=== PATIENT | female | born 1940 | race Caucasian/White ===

== ENCOUNTER → 2017-04-13 | Outpatient (CLI) | payer OTHER ==
[~2017-04-13] MED LIST: LEVO25TA2 PO; METO25TA9 PO
--- NOTE | 2017-04-13 15:57 | DIREP ---
PROCEDURE:Digital Screening Mammogram TECHNIQUE:MLO and CC digital images of each breast are provided. Computer Assisted Detection (CAD) was utilized. COMPARISON:[facility], , MAMMO BILATERAL SCREENING WITH CAD, 04/04/2016, 02:28 PM. INDICATIONS:SCREENING BREAST COMPOSITION:There are scattered areas of fibroglandular density. FINDINGS:There are no grouped microcalcifications, masses, or architectural distortions to suggest malignancy. There is no significant change as compared with the previous examination(s). IMPRESSION:No mammographic evidence of malignancy. RECOMMENDATIONS:Routine Screening Mammography per [employer] guidelines. OVERALL FINAL ASSESSMENT:BI-RADS 2 - Benign Mammogram Note: This facility participates in a mammography screening patient reminder system. Dictated by: Richard Payne M.D. on 04/13/2017 at 03:54 PM
== END | disposition home or self-care (01) ==
LOC: RAD 14:15
PROVIDERS: ATTEND Nurse Practitioner Family
DX: Z12.31 Encounter for screening mammogram for malignant neoplasm of breast (principal)
CPT/HCPCS: G0202; 77067

== ENCOUNTER → 2017-05-12 | Outpatient (CLI) | payer OTHER ==
--- NOTE | 2017-05-12 17:35 | DIREP ---
COMPARISON:None. INDICATIONS:R42 DIZZINESS AND VERTIGO TECHNIQUE:A variety of imaging planes and parameters were utilized for visualization of suspected pathology. Images were performed without and with gadolinium contrast. FINDINGS: VENTRICLES:Mild to moderate ventriculomegaly with mild atrophy. There are minimal to mild periventricular white matter changes identified which may be secondary to small vessel disease and old aging. No lacunar infarcts are seen in the basal ganglia or in the thalamus. Pineal gland, Meckel's cave and cavernous sinuses are unremarkable. No evidence for demyelinating disorder is seen. CEREBRUM:Midline structures, shows normal-appearing corpus callosum. Sella, chiasm, cervicomedullary craniovertebral junctions are normal. No tonsillar ectopia is seen. Clivus and the odontoid are satisfactory. The arteries are patent at the level of [place] of [place]. No acute territorial infarct, bleed or mass lesion is seen. No acute or chronic epidural, subdural or subarachnoid hemorrhage is seen. No edema, midline shift or increased intracranial pressure is seen. CEREBELLUM:No posterior fossa infarcts or mass lesions are seen. IAC's, cerebello-pontine angle, brachium pontis and cerebellum are normal. The left vertebral artery is larger than the right. BRAINSTEM:No focal white matter changes are identified in the medulla, eli, brainstem and peduncles. The left vertebral artery is slightly ectatic and may impinge upon the [place] of the medulla on the left side. BASAL CISTERNS:Normal. HEMORRHAGE:No MASS LESION:No ACUTE INFARCT:No SKULL:There is mild hyperostosis of the skull. Minimal fluid in the right mastoid. No air-fluid levels are seen in the paranasal sinuses. The orbits are unremarkable. OTHER:No abnormal enhancement is identified in the vessels, dura, leptomeninges, or in the brain parenchyma. No subependymal enhancement is seen. CONCLUSION: Mild atrophy with minimal periventricular white matter change. Patent intracranial vessels. No acute infarct, bleed or mass lesion is seen. No posterior fossa infarcts or mass lesions are seen. No abnormal enhancement in the brain. Dictated by: Colt Lawrence MD on 05/12/2017 at 05:30 PM
== END | disposition home or self-care (01) ==
LOC: MRI 15:23
PROVIDERS: ATTEND Nurse Practitioner Family
DX: R42 Dizziness and giddiness (principal)
CPT/HCPCS: 70553; A9579

== ENCOUNTER → 2018-03-15 | Outpatient (CLI) | payer OTHER ==
[~2018-03-15] MED LIST changes: +METO-236 PO; -METO25TA9 PO
--- NOTE | 2018-03-15 16:40 | DIREP ---
PROCEDURE:Digital Screening Mammogram TECHNIQUE:MLO and CC digital images of each breast are provided. Computer Assisted Detection (CAD) was utilized. COMPARISON:[facility], MAMMO BILATERAL SCREENING, 04/13/2017, 02:57 PM. [facility], MAMMO BILATERAL SCREENING WITH CAD, 04/04/2016, 02:28 PM. INDICATIONS:SCREENING BREAST COMPOSITION:There are scattered areas of fibroglandular density. FINDINGS:There are no grouped microcalcifications, masses, or architectural distortions to suggest malignancy. There is no significant change as compared with the previous examination(s). IMPRESSION:No mammographic evidence of malignancy. RECOMMENDATIONS:Routine Screening Mammography per [employer] guidelines. OVERALL FINAL ASSESSMENT:BI-RADS 1 - Negative Mammogram Note: This facility participates in a mammography screening patient reminder system. Dictated by: Benja Tate MD on 03/15/2018 at 04:34 PM
== END | disposition home or self-care (01) ==
LOC: RAD 13:05
PROVIDERS: ATTEND Nurse Practitioner Family
DX: Z12.31 Encounter for screening mammogram for malignant neoplasm of breast (principal)
CPT/HCPCS: 77067

== ENCOUNTER 2018-11-28 06:15 | Day surgery (SDC) | payer OTHER ==
[2018-11-26 14:41] VITALS: BP 142/65
[2018-11-26 15:01] LABS: BASOPHIL # 0.1 10^3/uL (0.0-0.1); EOSINOPHIL # 0.2 10^3/uL (0.0-0.2); EOSINOPHIL % 3.9 % (0.0-5.0); HEMOGLOBIN 12.8 g/dL (12.0-15.0); LYMPHOCYTES # 1.6 10^3/uL (1.0-4.8); LYMPHOCYTES % 25.4 % (24.0-44.0); MEAN CELL HGB 30.9 pg (26-34); MEAN CELL HGB CONCENTRATION 32.4 g/dL (33-37); MEAN CORP VOLUME 95.4 fL (78-100); MEAN PLATELET VOLUME 10.3 fL (7.8-11.0); MONOCYTES # 0.8 10^3/uL (0.3-0.8); MONOCYTES % 13.1 % (5.0-12.0); NEUTROPHIL # 3.5 10^3/uL (1.8-7.7); NEUTROPHILS % 56.6 % (41.0-85.0); PLATELET COUNT 380 10^3/uL (150-400); RED CELL DISTRIBUTION WIDTH 12.9 % (11.5-14.5); WHITE BLOOD CELL 6.1 10^3/uL (4.5-11.0)
[2018-11-26 15:42] LABS: CALCIUM 9.7 mg/dL (8.4-10.5); CARBON DIOXIDE 25.9 mmol/L (20.0-32)
[2018-11-28] VITALS (8 sets, daily range): BP systolic 80–148; BP diastolic 44–79
[~2018-11-28] VITALS: Ht 154.9 cm; Wt 59.0 kg
[~2018-11-28 06:15] MED LIST changes: +CALC-76 PO; +LACTATED RINGERS 1,000 ML ONE; +MECL25TA3 PO; +MOVIPREP POWDER PACKET PO STA; +OMEP20CA12 PO; +PRAV40TA2 PO
[2018-11-28] MEDS: LACTATED RINGERS 1,000 ML IV SCH ×2 (06:29→08:07)
[2018-11-28] MEDS ORDERED: WATER ONE (06:47)
[2018-11-28] MEDS ORDERED: VERSED ONE (06:52)
[2018-11-28] MEDS ORDERED: SUBLIMAZE ONE (06:52)
[2018-11-28] MEDS ORDERED: DIPRIVAN IV ONE (06:52)
[2018-11-28] MEDS ORDERED: NS 100ML 100 ML IV ONE (06:53)
[2018-11-28] MEDS ORDERED: LIDOCAINE 2% VIAL ONE (06:53)
[2018-11-28] MEDS ORDERED: LACTATED RINGERS 1,000 ML ONE (08:04)
--- NOTE | 2018-11-28 12:29 | OPH ---
DATE OF SURGERY: PREOPERATIVE DIAGNOSIS: History of reflux disease and need for screening. POSTOPERATIVE DIAGNOSES: 1. Gastritis. 2. Small hiatal hernia. 3. Diverticular disease in the sigmoid colon. 4. Fixed colon. SURGEON: Rolly Orozco DO [employer] AGENT: OR staff. ANESTHESIA: Total intravenous anesthesia by Chel Calles CRNA. PROCEDURES PERFORMED: 1. Esophagogastroduodenoscopy with biopsy. 2. Flex sig to 24 cm with incomplete visualization of the colon. SPECIMENS: Gastric mucosa to path. ESTIMATED BLOOD LOSS: 3 mL. COUNTS: At the completion of the case, counts were correct per OR staff. DESCRIPTION OF PROCEDURE: The patient is a very pleasant 78-year-old female, who is known from previous evaluation. Prior to procedure, informed consent was obtained. At the time of procedure, she was taken to the operative suite and placed in supine position. After time-out was completed, he was placed in left lateral recumbent position. With excellent sedation, esophagogastroduodenoscope was advanced transorally with pneumoinsufflation distally into the second portion of duodenum. Once the duodenum was adequate visualized, camera was slowly withdrawn to facilitate visualization of the duodenal bulb and the pylorus. Pylorus and distal stomach showed gastritis and biopsies were obtained. The retroflexed maneuver was performed initially. The cardia was visualized, shows a hiatal hernia. The fundus was visualized subsequently; however, visualization was limited due to ability to scope, to pneumo-insufflate. After adequate visualization of the fundus, camera was reduced, the body of the stomach was inspected. Stomach was decompressed. Scope was slowly withdrawn. Distal, mid and proximal esophagus within normal limits. Vocal cords are not visualized. Camera was removed. Procedure was discontinued. The patient remained in the OR. Timeout was previously completed. With adequate sedation, rectal exam was performed. There were no masses. Next, the colonoscope was advanced transanally with pneumoinsufflation proximally through the rectum to the sigmoid colon where diverticular disease is identified; however, multiple attempts were made to advance proximally from what appears to be a fixed curvature that is not allow for passage of the scope. For concerns of possible perforation, procedure was discontinued. Camera was slowly withdrawn to the minimal portion of the distal sigmoid colon, which was seen in the rectum. There is no overt pathology identified. At the level of 5 cm, camera was retroflexed and reinserted. Anal verge was visualized and within normal limits. Camera was reduced. Colon was decompressed. Colonoscope was removed. The patient tolerated this procedure well. There were no acute complications noted. Rolly Orozco DO DR: HERNANDEZ/brijesh JOB# [id number] CC: Tonya Chanel NP
== END 2018-11-28 09:35 | disposition home or self-care (01) ==
LOC: SDC 06:15
PROVIDERS: ATTEND Surgery
DX: Z12.11 Encounter for screening for malignant neoplasm of colon (principal); K57.30 Diverticulosis of large intestine without perforation or abscess without bleeding; K29.50 Unspecified chronic gastritis without bleeding; K21.9 Gastro-esophageal reflux disease without esophagitis; K44.9 Diaphragmatic hernia without obstruction or gangrene; K63.89 Other specified diseases of intestine; M19.90 Unspecified osteoarthritis, unspecified site; I10 Essential (primary) hypertension; E78.5 Hyperlipidemia, unspecified; E03.9 Hypothyroidism, unspecified; Z98.890 Other specified postprocedural states; Z79.899 Other long term (current) drug therapy; Z98.51 Tubal ligation status; Z83.3 Family history of diabetes mellitus; Z82.49 Family history of ischemic heart disease and other diseases of the circulatory system
CPT/HCPCS: 36415; 43239; 80053; 85025; 85610; 85730; 88305; G0121; J2001; J2250; J3010; J3490; J7050; J7120 ×2

== ENCOUNTER → 2018-12-19 | Outpatient (CLI) | payer OTHER ==
[~2018-12-19] MED LIST changes: -LACTATED RINGERS 1,000 ML ONE; -MOVIPREP POWDER PACKET PO STA
== END | disposition home or self-care (01) ==
LOC: NPLAB 14:11
PROVIDERS: ATTEND Nurse Practitioner Family
DX: R42 Dizziness and giddiness (principal); R35.0 Frequency of micturition; I10 Essential (primary) hypertension; R53.83 Other fatigue; R26.89 Other abnormalities of gait and mobility
CPT/HCPCS: 87086

== ENCOUNTER → 2019-03-19 | Outpatient (CLI) | payer OTHER ==
--- NOTE | 2019-03-19 15:13 | DIREP ---
PROCEDURE:Digital Screening Mammogram TECHNIQUE:MLO and CC digital images of each breast are provided. Computer Assisted Detection (CAD) was utilized. COMPARISON:[facility], MAMMO BILATERAL SCREENING, 04/13/2017, 02:57 PM. [facility], MAMMO BILATERAL SCREENING WITH CAD, 04/04/2016, 02:28 PM. [facility], MAMMO BILATERAL SCREENING, 03/15/2018, 02:16 PM. INDICATIONS:SCREENING BREAST COMPOSITION:There are scattered areas of fibroglandular density. FINDINGS:There are no grouped microcalcifications, masses, or architectural distortions to suggest malignancy. There is no significant change as compared with the previous examination(s). IMPRESSION:No mammographic evidence of malignancy. RECOMMENDATIONS:Routine Screening Mammography per [employer] guidelines. OVERALL FINAL ASSESSMENT:BI-RADS 1 - Negative Mammogram Note: This facility participates in a mammography screening patient reminder system. Dictated by: Colin Marion M.D. on 03/19/2019 at 03:11 PM
== END | disposition home or self-care (01) ==
LOC: RAD 13:50
PROVIDERS: ATTEND Nurse Practitioner Family
DX: Z12.31 Encounter for screening mammogram for malignant neoplasm of breast (principal)
CPT/HCPCS: 77067

== ENCOUNTER → 2019-07-30 | Outpatient (CLI) | payer OTHER ==
[~2019-07-30] MED LIST changes: -OMEP20CA12 PO; +OMEP20CA13 PO
--- NOTE | 2019-07-30 16:05 | DIREP ---
PROCEDURE:BONE DENSITY PERIPHERAL INDICATIONS:Z78.0 ASYMPTOMATIC MENOPAUSAL STATE COMPARISON:None. FINDINGS: Femur Proximal RIGHT femur bone mineral density (BMD) (g/cm2): 0.717 T-score : -2.3 Proximal LEFT femur bone mineral density (BMD) (g/cm2): 0.786T-score: -1.8 Lumbar Lumbar bone mineral density (BMD) (g/cm2): 1.125T-score : -0.6 Imaging- No significant findings CONCLUSION:1. Osteopenia proximal femora, normal bone mineral density lumbar spine. 2. Based on the [place] FRAX study, the patient's 10-year probability of a major osteoporotic fracture (clinical spine, forearm, hip or shoulder) is 17.3 %, and the 10-year probability of a hip fracture is 5.8 %. SUGGESTED RECOMMENDATIONS: Normal & Osteopenia:Consideration should be given to use of calcium supplementation, daily multiple vitamins and adequate exercise, as preventive measures against osteoporosis, if clinically indicated. Osteoporosis & Severe Osteoporosis:In addition to the above, consideration should be given to medical therapy against osteoporosis, if clinically indicated. Dictated by: Benja Tate MD on 07/30/2019 at 04:02 PM
== END | disposition home or self-care (01) ==
LOC: BD 13:49
PROVIDERS: ATTEND Nurse Practitioner Family
DX: M85.88 Other specified disorders of bone density and structure, other site (principal); Z78.0 Asymptomatic menopausal state
CPT/HCPCS: 77080

== ENCOUNTER → 2019-11-01 | Outpatient (CLI) | payer OTHER ==
[~2019-11-01] MED LIST changes: +MECL-95 PO; -MECL25TA3 PO; -OMEP20CA13 PO; +OMEP20CA19 PO
--- NOTE | 2019-11-01 18:07 | DIREP ---
PROCEDURE:US DOPPLER CAROTID BILATERAL COMPARISON:None. INDICATIONS:R42 DIZZINESS AND VERTIGO TECHNIQUE:Sonographic evaluation of carotid arteries was performed together with grayscale, color-flow, and spectral analysis. FINDINGS: PEAK FLOW VELOCITIES (cm/sec) RIGHT CCA: PROX:106.3 cm/s MID:84.2 cm/s DIST:62.0 cm/s RIGHT BULB: 59.8 cm/s RIGHT ICA: PROX:73.8 cm/s MID:34.3 cm/s DIST:69.3 cm/s RIGHT ECA:79.4 cm/s RIGHT ICA/CCA:1.2 RIGHT VERTEBRAL:44.0 cm/s; Antegrade IMAGES:There is no significant plaque formation. LEFT CCA: PROX:73.9 cm/s MID:Not imaged. DIST:72.8 cm/s LEFT BULB:Not imaged. LEFT ICA: PROX:55.3 cm/s MID:71.4 cm/s DIST:66.4 cm/s LEFT ECA:38.7 cm/s LEFT ICA/CCA:1.0 LEFT VERTEBRAL:53.2 cm/s; Antegrade IMAGES:There is focal calcific plaque in the proximal left ICA plaque. 2-3 mm cyst or nodule in the right thyroid lobe. No follow-up is required. CONCLUSION:No evidence for hemodynamically significant stenosis or aneurysm formation. Focal calcific plaque in the proximal left ICA. Diameter Stenosis (%)ICA Peak Systolic Velocity (cm/s)ICA/CCA RatioNormal<125<2.0<50<125<[id number]>2-470 to near occlusion>230>4J Ultrasound Med 2005; 24:2321-7363 Dictated by: DENNIS Physician on 11/01/2019 at 02:32 PM bs
== END | disposition home or self-care (01) ==
LOC: RAD 10:53
PROVIDERS: ATTEND Nurse Practitioner Family
DX: I65.23 Occlusion and stenosis of bilateral carotid arteries (principal)
CPT/HCPCS: 93880

== ENCOUNTER → 2020-04-01 | Outpatient (CLI) | payer OTHER ==
--- NOTE | 2020-04-01 17:41 | DIREP ---
PROCEDURE:Digital Screening Mammogram TECHNIQUE:MLO and CC digital images of each breast are provided. Computer Assisted Detection (CAD) was utilized. COMPARISON:[facility], MAMMO BILATERAL SCREENING, 03/19/2019, 02:32 PM. [facility], MAMMO BILATERAL SCREENING, 03/15/2018, 02:16 PM. [facility], MAMMO BILATERAL SCREENING, 04/13/2017, 02:57 PM. [facility], MAMMO BILATERAL SCREENING WITH CAD, 04/04/2016, 02:28 PM. INDICATIONS:SCREENING BREAST COMPOSITION:There are scattered areas of fibroglandular density. FINDINGS:There are no grouped microcalcifications, masses, or architectural distortions to suggest malignancy. There is no significant change as compared with the previous examination(s). IMPRESSION:No mammographic evidence of malignancy. RECOMMENDATIONS:Routine Screening Mammography per [employer] guidelines. OVERALL FINAL ASSESSMENT:BI-RADS 1 - Negative Mammogram Note: This facility participates in a mammography screening patient reminder system. Dictated by: Benja Tate MD on 04/01/2020 at 05:39 PM
== END | disposition home or self-care (01) ==
LOC: RAD 14:37
PROVIDERS: ATTEND Nurse Practitioner Family
DX: Z12.31 Encounter for screening mammogram for malignant neoplasm of breast (principal); N64.89 Other specified disorders of breast
CPT/HCPCS: 77067

== ENCOUNTER → 2021-03-31 | Outpatient (CLI) | payer OTHER ==
--- NOTE | 2021-03-31 15:28 | DIREP ---
PROCEDURE:Digital Screening Mammogram TECHNIQUE:MLO, CC, and cleavage digital images of each breast are provided. Computer Assisted Detection (CAD) was utilized. COMPARISON:[facility], MAMMO BILATERAL SCREENING, 03/19/2019, 02:32 PM. [facility], MAMMO BILATERAL SCREENING, 03/15/2018, 02:16 PM. [facility], MAMMO BILATERAL SCREENING, 04/13/2017, 02:57 PM. [facility], MAMMO BILATERAL SCREENING WITH CAD, 04/04/2016, 02:28 PM. [facility], MAMMO BILATERAL SCREENING, 04/01/2020, 03:24 PM. INDICATIONS:SCREENING BREAST COMPOSITION:Scattered areas fibroglandular density. FINDINGS:There are no grouped microcalcifications, masses, or architectural distortions to suggest malignancy. There is no significant change as compared with the previous examination(s). IMPRESSION:No mammographic evidence of malignancy. RECOMMENDATIONS:Routine Screening Mammography per [employer] guidelines. OVERALL FINAL ASSESSMENT:BI-RADS 1 - Negative Mammogram Note: This facility participates in a mammography screening patient reminder system. Dictated by: Colin Marion M.D. on 03/31/2021 at 03:25 PM
== END | disposition home or self-care (01) ==
LOC: RAD 14:18
PROVIDERS: ATTEND Nurse Practitioner Family
DX: Z12.31 Encounter for screening mammogram for malignant neoplasm of breast (principal)
CPT/HCPCS: 77067

== ENCOUNTER → 2021-04-20 | Outpatient (CLI) | payer OTHER ==
--- NOTE | 2021-04-21 09:12 | DIREP ---
PROCEDURE:US DUPLEX LOWER EXTREMITY ARTERY BILAT COMPARISON:None. INDICATIONS:I73.9 PVD, HTN TECHNIQUE:A comprehensive color duplex Doppler ultrasound examination of the bilateral lower extremities was performed. Color image and bidirectional spectral Doppler wave form analysis, and peak systolic flow measurements of the common femoral, profunda femoral, superficial femoral, and popliteal arteries were performed. Ankle/brachial indices were measured at the distal posterior tibial artery and anterior tibial/dorsalis pedis. FINDINGS: RIGHT LOWER EXTREMITY: PT LARON: 1.06. AT/DP LARON: 1.13. EXTERNAL ILIAC:Not imaged COMMON FEMORAL:153.9 cm/sBiphasic PROFUNDA FEMORIS:46.9 cm/sBiphasic SUPERFICIAL FEMORAL (prox):120.0 cm/sBiphasic SUPERFICIAL FEMORAL (mid):74.9 cm/sBiphasic SUPERFICIAL FEMORAL (dist):68.0 cm/sBiphasic POPLITEAL (prox):62.7 cm/sBiphasic POPLITEAL (dist):74.1 cm/sBiphasic POSTERIOR TIBIAL (prox):65.8 cm/sBiphasic POSTERIOR TIBIAL (mid):66.9 cm/sBiphasic POSTERIOR TIBIAL (dist):51.4 cm/sBiphasic PERONEAL (prox):73.3 cm/sBiphasic ANTERIOR TIBIAL (prox):42.6 cm/sBiphasic ANTERIOR TIBIAL (mid):49.0 cm/sBiphasic ANTERIOR TIBIAL (dist):59.2 cm/sBiphasic DORSALIS PEDIS:63.6 cm/sBiphasic LEFT LOWER EXTREMITY: PT LARON: 0.98. AT/DP LARON: 0.99. EXTERNAL ILIAC:Not imaged COMMON FEMORAL:158.6 cm/sBiphasic PROFUNDA FEMORIS:57.7 cm/sTriphasic SUPERFICIAL FEMORAL (prox):117.0 cm/sBiphasic SUPERFICIAL FEMORAL (mid):84.2 cm/sBiphasic SUPERFICIAL FEMORAL (dist):78.3 cm/sBiphasic POPLITEAL (prox):71.3 cm/sBiphasic POPLITEAL (dist):89.2 cm/sBiphasic POSTERIOR TIBIAL (prox):91.9 cm/sBiphasic POSTERIOR TIBIAL (mid):85.3 cm/sBiphasic POSTERIOR TIBIAL (dist):53.1 cm/sBiphasic PERONEAL (prox):53.1 cm/sBiphasic ANTERIOR TIBIAL (prox):67.1 cm/sBiphasic ANTERIOR TIBIAL (mid):43.3 cm/sBiphasic ANTERIOR TIBIAL (dist):40.5 cm/sBiphasic DORSALIS PEDIS:37.2 cm/sBiphasic CONCLUSION:No hemodynamically significant stenosis in the arteries of the lower extremities. ABIs greater than 1.4 indicate noncompressible vessels, likely to have significant peripheral vascular disease (PVD). ABIs of 0.91 to 1.3 indicate no significant obstructive disease. ABIs of 0.41 to 0.90 indicate grade I claudication. ABIs less than 0.4 indicate limb-threatening ischemia of grade I or grade II. % stenosisPSV (cm/s)Velocity ratio0-19<150<[id number].9>75>300>4 Dictated by: DENNIS Physician on 04/20/2021 at 06:56 PM ac
== END | disposition home or self-care (01) ==
LOC: RAD 14:39
PROVIDERS: ATTEND Nurse Practitioner Family
DX: I73.9 Peripheral vascular disease, unspecified (principal)
CPT/HCPCS: 93922; 93925

== ENCOUNTER → 2021-07-20 | Outpatient (CLI) | payer OTHER ==
--- NOTE | 2021-07-20 16:55 | DIREP ---
PROCEDURE:BONE DENSITY PERIPHERAL INDICATIONS:Z78.0 ASYMPTOMATIC MENOPAUSAL STATE COMPARISON:[facility], , BONE DENSITY PERIPHERAL, 07/30/2019, 02:15 PM. FINDINGS: Femur Proximal RIGHT femur bone mineral density (BMD) (g/cm2): 0.750 T-score : -2.0 Proximal LEFT femur bone mineral density (BMD) (g/cm2): 0.772T-score: -1.9 Lumbar Lumbar bone mineral density (BMD) (g/cm2): 1.105T-score : -0.7 Imaging- No significant findings CONCLUSION: 1. Osteopenia overall bilateral hips and normal bone mineral density overall lumbar spine 2. Based on the [place] FRAX study, the patient's 10-year probability of a major osteoporotic fracture (clinical spine, forearm, hip or shoulder) is 18.1%, and the 10-year probability of a hip fracture is 6.2%. SUGGESTED RECOMMENDATIONS: Normal & Osteopenia:Consideration should be given to use of calcium supplementation, daily multiple vitamins and adequate exercise, as preventive measures against osteoporosis, if clinically indicated. Osteoporosis & Severe Osteoporosis:In addition to the above, consideration should be given to medical therapy against osteoporosis, if clinically indicated. Dictated by: Jesús Myers M.D. on 07/20/2021 at 04:51 PM
== END | disposition home or self-care (01) ==
LOC: BD 15:22
PROVIDERS: ATTEND Nurse Practitioner Family
DX: M85.88 Other specified disorders of bone density and structure, other site (principal); Z78.0 Asymptomatic menopausal state
CPT/HCPCS: 77080

== ENCOUNTER → 2022-09-21 | Outpatient (CLI) | payer OTHER ==
--- NOTE | 2022-09-21 12:12 | DIREP ---
PROCEDURE:MRI BRAIN W&W/O COMPARISON:[facility], MR, MRI BRAIN W/WO, 05/12/2017, 04:35 PM. INDICATIONS:R42 DIZZINESS AND VERTIGO TECHNIQUE:A variety of imaging planes and parameters were utilized for visualization of suspected pathology. Images were performed without and with gadolinium contrast. FINDINGS: VENTRICLES:Mild prominence of the ventricles and cortical sulci consistent with age-appropriate involutional changes. CEREBRUM:Few punctate foci of increased FLAIR and T2 signal involving the subcortical white matter, likely mid minimal leukoaraiosis. No abnormal enhancement. CEREBELLUM:Normal. Cerebellopontine angles and posterior fossa appear normal. No abnormal enhancement. BRAINSTEM:Normal. BASAL CISTERNS:Normal. HEMORRHAGE:No MASS LESION:No ACUTE INFARCT:No SKULL:Normal. OTHER:Negative. CONCLUSION: 1. Mild atrophy and mild leukoaraiosis. Otherwise, unremarkable brain MRI. Dictated by: Grant Muñoz MD on 09/21/2022 at 12:03 PM
== END | disposition home or self-care (01) ==
LOC: RAD 07:54
PROVIDERS: ATTEND Nurse Practitioner Family
DX: G31.9 Degenerative disease of nervous system, unspecified (principal); I67.81 Acute cerebrovascular insufficiency; R42 Dizziness and giddiness
CPT/HCPCS: 70553; A9579

== ENCOUNTER → 2023-06-16 | Outpatient (CLI) | payer OTHER ==
[~2023-06-16] MED LIST changes: +MECL-213 PO; -MECL-95 PO
== END | disposition home or self-care (01) ==
LOC: RAD 12:32
PROVIDERS: ATTEND Nurse Practitioner Family
DX: I65.23 Occlusion and stenosis of bilateral carotid arteries (principal); I67.81 Acute cerebrovascular insufficiency; R42 Dizziness and giddiness
CPT/HCPCS: 70450; 93880

== ENCOUNTER → 2023-11-13 | Outpatient (CLI) | payer OTHER | END | disposition home or self-care (01) | LOC: RAD 09:13 | PROVIDERS: ATTEND Nurse Practitioner Family | DX: Z12.31 Encounter for screening mammogram for malignant neoplasm of breast (principal); M85.852 Other specified disorders of bone density and structure, left thigh; M85.851 Other specified disorders of bone density and structure, right thigh; Z78.0 Asymptomatic menopausal state | CPT/HCPCS: 77063; 77067; 77080 ==

== ENCOUNTER → 2025-03-07 | Outpatient (CLI) | payer OTHER | END | disposition home or self-care (01) | LOC: RAD 11:26 | PROVIDERS: ATTEND Nurse Practitioner Family | DX: M47.817 Spondylosis without myelopathy or radiculopathy, lumbosacral region (principal); M16.12 Unilateral primary osteoarthritis, left hip; M48.07 Spinal stenosis, lumbosacral region; M46.06 Spinal enthesopathy, lumbar region; M46.1 Sacroiliitis, not elsewhere classified; M25.552 Pain in left hip; M25.752 Osteophyte, left hip; M54.9 Dorsalgia, unspecified; I70.0 Atherosclerosis of aorta | CPT/HCPCS: 72100; 73502 ==